=== PATIENT | male | born 1945 | race Caucasian/White ===

== ENCOUNTER 2017-09-30 21:02 | Inpatient (IN) | payer BC, MEDICARE ==
[2017-09-30 21:36] LABS: #Eosinphils 0.1 thou/uL (0.0-0.7); #Lymphocytes 1.4 thou/uL (1.20-3.40); #Monocytes 0.9 thou/uL (0.11-0.59); #Neutrophils 6.6 thou/uL (1.40-6.50); %Basophils 0.5 % (0.0-1.0); %Eosinophils 0.8 % (0.0-10.0); %Lymphocytes 15.8 % (21.0-51.0); %Neutrophils 72.9 % (42.0-75.0); Hemoglobin 12.1 g/dL (14.0-18.0); Mean Corpuscular HGB CONC 34.1 g/dL (32.0-36.0); Mean Corpuscular Hemoglobin 34.1 pg (27.0-31.0); Mean Platelet Volume 6.5 fL (7.4-10.4); Platelet Count 281 thou/uL (130-400); Red Blood Cell (RBC) Count 3.56 mill/uL (4.70-6.10); White Blood Cell (WBC) Count 9.1 thou/uL (4.8-10.8)
[2017-09-30 21:42] LABS: INR-International Normal Ratio 1.1; PTT 32.3 SEC (22.9-36.1); Prothrombin Time 14.3 SEC (12.0-14.7)
--- NOTE | 2017-09-30 21:52 | RAD ---
CHEST ONE VIEW: HISTORY: Enteric tube placement. Preop. COMPARISON: Radiograph from outside facility. FINDINGS: Enteric tube SidePort is at the gastric fundus. The lungs are clear. No pneumothorax or effusion. IMPRESSION: Enteric tube SidePort at the gastric fundus. POS: MARIA ELENA
[2017-09-30 21:55] LABS: ALT (SGPT) 22 U/L (8-55); AST (SGOT) 20 U/L (5-34); Albumin 3.7 g/dL (3.4-4.8); Alkaline Phosphatase 79 U/L (40-150); Anion Gap 9 mmol/L (10-20); BUN (Urea Nitrogen) 34 mg/dL (8.4-25.7); Bilirubin, Total 0.9 mg/dL (0.2-1.2); CK (CPK) 36 U/L (30-200); Calc. Creatinine Clearance 0 mL/min (70-130); Calcium 9.3 mg/dL (7.8-10.44); Carbon Dioxide 31 mmol/L (23-31); Chloride 101 mmol/L (98-107); Estimated GFR-MDRD Greater than 90; Globulin 2.4 g/dL (2.4-3.5); Glucose 116 mg/dL (83-110); Lipase 35 U/L (8-78); Potassium 3.4 mmol/L (3.5-5.1); Protein, Total 6.1 g/dL (5.8-8.1); Sodium 138 mmol/L (136-145)
[2017-09-30 21:58] LABS: CKMB 0.6 ng/mL (0-6.6); Troponin I Less than 0.010 ng/mL (< 0.028)
[2017-10-01] MEDS ORDERED: Ziprasidone 20 MG VIAL IM PRN (01:26)
[2017-10-01] MEDS ORDERED: Dextrose 5% in Water 1,000 ML IV PRN (01:26)
[2017-10-01] MEDS ORDERED: Ondansetron ODT 4 MG TAB PO PRN (01:26)
[2017-10-01] MEDS ORDERED: Ondansetron HCl/PF 4 MG/2 ML Vial IVP PRN ×2 (01:26→01:34)
[2017-10-01] MEDS ORDERED: Acetaminophen 1,000 MG in Premix Bag 1 BAG IVPB PRN (01:26)
[2017-10-01] MEDS ORDERED: Dextrose 50% Abboject 50 ML SYRINGE SLOW IVP PRN (01:26)
[2017-10-01] MEDS ORDERED: hydrALAZINE 20 MG/ML VIAL SLOW IVP PRN ×2 (01:26→18:08)
[2017-10-01] MEDS ORDERED: Morphine 4 MG/ML VIAL SLOW IVP PRN ×4 (01:26→15:30)
[2017-10-01] MEDS ORDERED: Ondansetron ODT 4 MG TAB SL PRN (01:34)
[2017-10-01] MEDS ORDERED: D5 1/2 NS w/20 mEq KCL 1,000 ML IV SCH (01:45)
[2017-10-01] MEDS: Sodium Chloride 0.9% 1,000 ML IV SCH ×3 (02:06→20:28)
[2017-10-01 05:15] VITALS: BMI 27.3
[2017-10-01 05:30] LABS: #Basophils 0.1 thou/uL (0.0-0.2); #Eosinphils 0.1 thou/uL (0.0-0.7); #Lymphocytes 1.5 thou/uL (1.20-3.40); #Monocytes 0.9 thou/uL (0.11-0.59); #Neutrophils 6.3 thou/uL (1.40-6.50); %Basophils 0.6 % (0.0-1.0); %Lymphocytes 16.9 % (21.0-51.0); %Monocytes 10.1 % (0.0-10.0); %Neutrophils 71.4 % (42.0-75.0); Hemoglobin 11.1 g/dL (14.0-18.0); Mean Corpuscular HGB CONC 34.7 g/dL (32.0-36.0); Mean Platelet Volume 6.8 fL (7.4-10.4); Platelet Count 246 thou/uL (130-400); RBC Distribution Width 11.1 % (11.5-14.5); Red Blood Cell (RBC) Count 3.19 mill/uL (4.70-6.10); White Blood Cell (WBC) Count 8.8 thou/uL (4.8-10.8)
[2017-10-01 05:49] LABS: Anion Gap 10 mmol/L (10-20); BUN (Urea Nitrogen) 29 mg/dL (8.4-25.7); Calc. Creatinine Clearance 127 mL/min (70-130); Calcium 8.6 mg/dL (7.8-10.44); Carbon Dioxide 24 mmol/L (23-31); Chloride 108 mmol/L (98-107); Estimated GFR-MDRD Greater than 90; Glucose 96 mg/dL (83-110); Potassium 3.5 mmol/L (3.5-5.1); Sodium 138 mmol/L (136-145)
--- NOTE | 2017-10-01 07:04 | HP ---
CHIEF COMPLAINT: Right groin and abdominal pain. HISTORY OF PRESENT ILLNESS: This is a 71-year-old male who has a history of advanced dementia, but danie wu is ambulatory and interacts with his family on a normal day, complaining of more abdominal discomfo rt today. He was seen in the [facility]. CT scan revealed evidence of incarcerated ri ght inguinal hernia. There is some terminal ileum with some edematous changes in the hernia sac, jareth ble to have that hernia reduced. There was transferred to [place] for higher level of care. Here , he has been hemodynamically stable. In discussion with the , the patient does have dementia. His family is his caregivers and he is at home. He takes Geodon daily and has no significant agitati on. He is still ambulatory. he had a right inguinal hernia for a while, but given his other i ssalen did not have it repaired. MEDICAL HISTORY: Includes dementia and hypertension. SURGICAL HISTORY: None. ALLERGIES: No known drug allergies. SOCIAL HISTORY: Lives at home with his and daughter. Former football player. REVIEW OF SYSTEMS: Negative unless described above. PHYSICAL EXAMINATION: VITAL SIGNS: Blood pressure is 147/87, his pulse is 83, respirations are 12. GENERAL: He does awaken to voice and answers questions, although with some difficulty. HEENT: Sclerae are anicteric. Oropharynx clear. NECK: No lymphadenopathy. CHEST: Clear. HEART: Regular rate and rhythm. ABDOMEN: Soft, it is mildly distended, but really no significant tenderness or guarding. Right ingu inal hernia is reducible. EXTREMITIES: No ischemia or edema to extremities. LABORATORY: White cell count is 9, hemoglobin 12, platelet count is 281,000. Sodium 138, potassium is 3.4, creatinine 0.8, bilirubin, all liver function tests and lipase normal. CT scan was reviewed with showed incarceration of small intestine with some edematous change. ASSESSMENT: Incarcerated/strangulated inguinal hernia, now reduced at bedside. PLAN: Operative repair tomorrow. Risks, benefits discussed with the and daughter at the [facility]. They give consent. We will have medicine see him for medical management as well.
[2017-10-01] MEDS: Pantoprazole 40 MG VIAL IVP SCH (08:40)
[2017-10-01 11:15] LABS: Magnesium 1.7 mg/dL (1.6-2.6); Phosphorus 3.2 mg/dL (2.3-4.7)
[2017-10-01] MEDS ORDERED: Midazolam HCl 2 mg/2 ml Vial ONE (11:25)
[2017-10-01] MEDS ORDERED: Fentanyl 100 MCG/2 ML VIAL ONE (11:25)
[2017-10-01] MEDS ORDERED: CEFAZOLIN/Water 2 GM/20 ML SYRINGE ONE (11:35)
[2017-10-01] MEDS ORDERED: Lidocaine 2% 10 ML INJ ONE (11:36)
[2017-10-01] MEDS ORDERED: Bupivacaine PF 0.5% 30 ML VIAL ONE ×2 (11:36→11:46)
[2017-10-01] MEDS ORDERED: Bupivacaine/Epinephrine 0.25% 30 ML VIAL ONE (11:36)
[2017-10-01] MEDS ORDERED: Dexamethasone 20 MG/5 ML VIAL ONE (14:35)
[2017-10-01] MEDS ORDERED: Succinylcholine Chloride 20 MG/ML 10 ml SYRINGE FS ONE (14:35)
[2017-10-01] MEDS ORDERED: PROPOFOL 200 MG/20 ML VIAL ONE (14:35)
[2017-10-01] MEDS ORDERED: Acetaminophen 650 MG/20.3 ML UDCUP PO PRN (15:24)
--- NOTE | 2017-10-01 18:04 | PDOC.PN ---
- Subjective Encounter Start Date: 10/01/17 Encounter Start Time: 18:03 Patient seen and examined for med mngt. No new complaints. No overnight events - Objective MAR Reviewed: Yes Vital Signs & Weight: Vital Signs (12 hours) Temp Pulse Resp BP Pulse Ox 10/01/17 15:55 52 L 18 121/68 100 10/01/17 07:45 98.0 F 67 18 10/01/17 07:30 98.0 F 67 18 129/68 95 Weight Admit Weight 207 lb Weight 207 lb I&O: 09/30/17 10/01/17 10/02/17 06:59 06:59 06:59 Intake Total 660 Output Total 50 Balance 610 Result Diagrams: 10/01/17 04:43 10/01/17 04:43 EKG Reviewed by me: Yes (SR) Phys Exam - Physical Examination Constitutional: NAD Respiratory: no wheezing, no rhonchi Cardiovascular: RRR, no rub Gastrointestinal: soft, non-tender Musculoskeletal: no edema Neurological: moves all 4 limbs Dx/Plan (1) Hypokalemia Code(s): E87.6 - HYPOKALEMIA Status: Acute (2) HTN (hypertension) Code(s): I10 - ESSENTIAL (PRIMARY) HYPERTENSION Status: Chronic (3) Dementia Code(s): F03.90 - UNSPECIFIED DEMENTIA WITHOUT BEHAVIORAL DISTURBANCE Status: Acute (4) HLD (hyperlipidemia) Code(s): E78.5 - HYPERLIPIDEMIA, UNSPECIFIED Status: Chronic - Plan plan discussed w/ family, incentive spirometry, DVT proph w/SCDs DC Losartan/HCT -: Start Losartan 25 mg daily with holding parameters -: Cont all other home meds including Namenda/Geodon -: Full code. DPAO - family -: Thank you for this consultation. Will follow. Review of Systems - Review of Systems Respiratory: negative: Cough, Dry, Shortness of Breath, Hemoptysis, SOB with Excertion, Pleuritic Pain, Sputum, Wheezing Cardiovascular: negative: chest pain, palpitations, orthopnea, paroxysmal nocturnal dyspnea, edema, light headedness, other - Medications/Allergies Allergies/Adverse Reactions: Allergies Allergy/AdvReac Type Severity Reaction Status Date / Time codeine Allergy Verified 10/01/17 05:00 Medications: Current Medications Acetaminophen (Tylenol Elixir) 650 mg PO Q6H PRN PRN Reason: Headache/Fever>101 or Pain Albuterol/Ipratropium (Duoneb) 3 ml NEB Q4H PRN PRN Reason: Wheezing Dextrose/Water (Dextrose 50%) 25 gm SLOW IVP PRN PRN PRN Reason: Hypoglycemia Glucagon (Glucagon) 1 mg IM PRN PRN PRN Reason: Hypoglycemia HCTZ/Losartan Potassium (Hyzaar 50/12.5) 0.5 tab PO [place]U [facility] Hydralazine HCl (Apresoline) 10 mg SLOW IVP Q4H PRN PRN Reason: SBP > 170 or DBP > 100 Dextrose/Water (D5w) 1,000 mls @ 0 mls/hr IV .Q0M PRN; As Directed PRN Reason: Hypoglycemia Sodium Chloride (Normal Saline 0.9%) 1,000 mls @ 110 mls/hr IV .Q9H6M [facility] Last Admin: 10/01/17 14:52 Dose: Not Given Acetaminophen 1,000 mg/ Device 100 mls @ 400 mls/hr IVPB Q6H PRN PRN Reason: Fever/Mild Pain Stop: 10/02/17 01:27 Memantine (Namenda) 10 mg PO BID [facility] Morphine Sulfate (Morphine) 2 mg SLOW IVP Q2H PRN PRN Reason: Mild Pain (1-3) Morphine Sulfate (Morphine) 4 mg SLOW IVP Q2H PRN PRN Reason: Moderate Pain (4-6) Morphine Sulfate (Morphine) 4 mg SLOW IVP Q4H PRN PRN Reason: Moderate to Severe Pain (6-10) Ondansetron HCl (Zofran Odt) 4 mg PO Q6H PRN PRN Reason: Nausea/Vomiting Ondansetron HCl (Zofran) 4 mg IVP Q6H PRN PRN Reason: Nausea Pantoprazole Sodium (Protonix) 40 mg IVP DAILY [facility] Last Admin: 10/01/17 08:40 Dose: 40 mg Rivastigmine (Exelon Patch) 9.5 mg TOP QAM [facility] Sodium Chloride (Flush - Normal Saline) 10 ml IVF PRN PRN PRN Reason: Saline Flush Tramadol HCl (Ultram) 50 mg PO Q4H PRN PRN Reason: Pain Ziprasidone (Geodon) 10 mg IM Q2H PRN PRN Reason: Agitation Ziprasidone (Geodon) 40 mg PO QAM JENIFER Ziprasidone (Geodon) 60 mg PO HS JENIFER
[2017-10-01] MEDS: Ziprasidone 20 MG CAP PO SCH (20:28)
--- NOTE | 2017-10-01 20:36 | OP ---
DATE OF PROCEDURE: 10/01/2017 PREOPERATIVE DIAGNOSIS: Incarcerated right inguinal hernia. POSTOPERATIVE DIAGNOSIS: Incarcerated right inguinal hernia. PROCEDURE: Incarcerated right inguinal hernia repair with mesh, PHS extended. SURGEON: Angel Moctezuma M.D. ANESTHESIA: General. ESTIMATED BLOOD LOSS: Minimal. COMPLICATIONS: None. SPECIMEN: None. TECHNIQUE: The patient was taken to the operating room and placed supine on the table. After genera l anesthetic was obtained, the right groin and abdomen shaved, and draped in a sterile fashion. Obli que incision made above the pubic tubercle in the right lower quadrant. Cautery dissected down throu gh Latrice's to expose the external oblique. External oblique fibers opened along the course of the e xternal ring. Contents of inguinal canal were resected from backside the external oblique. Ilioingu inal nerve was found and segmentally high removed to prevent postoperative pain. Cord structures wer e mobilized on the pubic tubercle using a Julia drain. Dissection superior medially on the cord sh owed there to be a large indirect hernia sac. This was dissected away from other cord structures and a high ligation was performed using a silk suture. The preperitoneal space was entered at the base of this stump as it was inverted back into the preperitoneal space. Preperitoneal space was bluntly dissected using wet unraveled Ray-Parul. PHS extended mesh brought into the sterile field. The underl ay was placed in the preperitoneal space, its fibers laid out flat against the posterior abdominal wa ll. The mesh is cut laterally to incorporate the internal ring. The mesh is sewn distally to the pu bic laterally to shelving edging of ligament, medial to the transverse arch using permanent braided s uture. The two ends of cut mesh were reapproximated at the shelving edging of ligament to reform the internal ring. The extra mesh is tucked back under the external oblique proximally. The wound is i rrigated. Local anesthetic is applied. Tunneled catheter for postop pain control, threaded from abo ve the incision left on top of the mesh. External oblique is closed using 3-0 Vicryl. Latrice's clos ed using 3-0 Vicryl. Skin is closed using running 4-0 Monocryl and Dermabond. The patient was en ro [place] to recovery in stable condition. All instrument counts, needle counts, lap counts are correct.
[2017-10-02] MEDS: Sodium Chloride 0.9% 1,000 ML IV SCH (06:25)
[2017-10-02] MEDS ORDERED: Sodium Chloride 0.9% 1,000 ML IV SCH (07:37)
[2017-10-02] MEDS: Losartan 25 MG TAB PO SCH (08:40)
[2017-10-02] MEDS: Pantoprazole 40 MG VIAL IVP SCH (08:41)
[2017-10-02] MEDS: Rivastigmine 9.5mg/24 Hour PATCH TOP SCH (08:41)
[2017-10-02] MEDS: Ziprasidone 20 MG CAP PO SCH ×2 (08:41→21:21)
[2017-10-02] MEDS: traMADol HCl 50 MG TAB PO PRN ×2 (09:05→15:06)
--- NOTE | 2017-10-02 10:39 | PDOC.GSPN ---
Surgery Progress Note: Subj - Subjective Patient reports: no new complaints (POD 2, doing well. tolertating liquids, no nausea) Surgery Progress Note: Obj - Vital signs Vital signs: Vital Signs - Most Recent Temp Pulse Resp BP Pulse Ox 98.5 F 67 14 126/61 93 L 10/02/17 07:51 10/02/17 07:51 10/02/17 07:51 10/02/17 07:45 10/02/17 07:45 - Physical Exam General: no distress Cardiovascular: regular rate and rhythm Respiratory: clear to auscultation Abdomen: soft, non tender Surgery Progress Note: Results - Labs Result Diagrams: 10/01/17 04:43 10/01/17 04:43 Surgery Progress Note: A/P - Problem (1) Incarcerated inguinal hernia Current Visit: Yes Code(s): K40.30 - UNIL INGUINAL HERNIA, W OBST, W/O GANGR, NOT SPCF RECUR Status: Acute Assessment and Plan: Advance to GI soft diet. Probably home tomorrow
[2017-10-03 07:50] VITALS: BP 143/66; TEMP 98.3
[2017-10-03] MEDS: Ziprasidone 20 MG CAP PO SCH (08:41)
[2017-10-03] MEDS: Pantoprazole 40 MG VIAL IVP SCH (08:41)
[2017-10-03] MEDS: Rivastigmine 9.5mg/24 Hour PATCH TOP SCH (08:41)
[2017-10-03] MEDS: Losartan 25 MG TAB PO SCH (08:42)
--- NOTE | 2017-10-03 18:56 | DIS ---
DATE OF ADMISSION: 09/30/2017 DATE OF DISCHARGE: 10/03/2017 ADMITTING DIAGNOSIS: Incarcerated right inguinal hernia. DISCHARGE DIAGNOSIS: Incarcerated right inguinal hernia, dementia, hypertension. PROCEDURES: Right inguinal hernia repair with mesh. CONDITION AT DISCHARGE: Improved. STAFF: Angel Moctezuma MD HOSPITAL COURSE: See hospital chart for details of hospitalization.
== END 2017-10-03 11:33 | disposition home or self-care (01) | DRG 352 ==
LOC: ERS 21:02 → SURG A 22:26
PROVIDERS: ADMIT Surgery; ATTEND Surgery
PROC: 0YU50JZ Supplement Right Inguinal Region with Synthetic Substitute, Open Approach (ICD-10-PCS; principal; 2017-10-01)
DX: K40.30 Unilateral inguinal hernia, with obstruction, without gangrene, not specified as recurrent (principal); F03.90 Unspecified dementia, unspecified severity, without behavioral disturbance, psychotic disturbance, mood disturbance, and anxiety; I10 Essential (primary) hypertension; E87.6 Hypokalemia; E87.5 Hyperkalemia
CPT/HCPCS: 36415; 71045; 80048; 80053; 82550; 82553; 83690; 83735; 83880; 84100; 84484; 85025; 85610; 85730; 93005; 96360; A4306; C1781; C9113; J1100; J2250; J2704; J3010; S0020

== ENCOUNTER 2018-11-22 17:43 | Inpatient (IN) | payer MEDICARE, BC ==
[2018-11-22 18:36] LABS: #Eosinphils 0.2 thou/uL (0.0-0.7); #Lymphocytes 0.9 thou/uL (1.20-3.40); #Monocytes 1.1 thou/uL (0.11-0.59); #Neutrophils 9.4 thou/uL (1.40-6.50); %Basophils 0.3 % (0.0-1.0); %Eosinophils 1.4 % (0.0-10.0); %Lymphocytes 7.4 % (21.0-51.0); %Monocytes 9.7 % (0.0-10.0); %Neutrophils 81.2 % (42.0-75.0); Hemoglobin 11.7 g/dL (14.0-18.0); Mean Corpuscular HGB CONC 34.4 g/dL (32.0-36.0); Mean Corpuscular Hemoglobin 34.9 pg (27.0-31.0); Platelet Count 191 thou/uL (130-400); RBC Distribution Width 11.1 % (11.5-14.5); Red Blood Cell (RBC) Count 3.35 mill/uL (4.70-6.10); White Blood Cell (WBC) Count 11.5 thou/uL (4.8-10.8)
--- NOTE | 2018-11-22 18:49 | RAD ---
Exam: Chest one view HISTORY:Preoperative exam for left hip fracture repair Comparison: 11/22/2018 at 12:38 PM FINDINGS: Cardiac silhouette:Stable cardiomegaly and atherosclerosis Pulmonary vessels: Normal Costophrenic angles: Clear LUNGS: No masses or consolidation. Pneumothorax: None Osseous abnormalities: None IMPRESSION: 1. No acute cardiopulmonary process. 2. Stable atherosclerosis of the aorta.
--- NOTE | 2018-11-22 18:50 | RAD ---
Radiograph pelvis one view: DATE: 11/22/2018 HISTORY: 73-year-old male with left hip pain due to fall FINDINGS: There is fracture of the left femoral neck, with varus angulation, overlap of fracture fragments, and at least mild superior lateral displacement of distal fragments. The pelvic ring appears to be grossly intact on this plain radiograph. IMPRESSION: Acute, traumatic, displaced, left femoral neck fracture.
[2018-11-22 18:57] LABS: ALT (SGPT) 23 U/L (8-55); AST (SGOT) 31 U/L (5-34); Albumin 3.6 g/dL (3.4-4.8); Alkaline Phosphatase 96 U/L (40-150); Anion Gap 9 mmol/L (10-20); BUN (Urea Nitrogen) 16 mg/dL (8.4-25.7); Bilirubin, Total 0.9 mg/dL (0.2-1.2); Calc. Creatinine Clearance 0 mL/min (70-130); Calcium 9.7 mg/dL (7.8-10.44); Carbon Dioxide 29 mmol/L (23-31); Chloride 101 mmol/L (98-107); Estimated GFR-MDRD Greater than 90; Globulin 2.9 g/dL (2.4-3.5); Glucose 109 mg/dL (83-110); Potassium 4.2 mmol/L (3.5-5.1); Protein, Total 6.5 g/dL (5.8-8.1); Sodium 135 mmol/L (136-145)
--- NOTE | 2018-11-22 19:53 | CT ---
Exam: Head CT without contrast HISTORY: Altered mental status. COMPARISON: none FINDINGS: Hemorrhage: No intraparenchymal hemorrhage or extra-axial hematoma. Brain parenchyma: Cortical bingham-white matter differentiation is preserved, with the exception of the right frontal lobe with is evidence of malacia from a remote insult. Overall, age-appropriate brain volume loss.Chronic small vessel ischemic changes of white matter are noted. Ventricular system: Ventricles and sulci are patent and symmetric. Calvarium: Intact. Sinuses and mastoid air cells: Adequate aeration. IMPRESSION: No acute intracranial process.
[2018-11-22] MEDS ORDERED: Morphine 4 MG/ML VIAL SLOW IVP PRN (20:03)
[2018-11-22] MEDS ORDERED: Dextrose 5% in Water 1,000 ML IV PRN (20:03)
[2018-11-22] MEDS ORDERED: Ondansetron PF 4 MG/2 ML Vial IVP PRN (20:03)
[2018-11-22] MEDS ORDERED: Dextrose 50% Abboject 50 ML SYRINGE SLOW IVP PRN (20:03)
[2018-11-22] MEDS ORDERED: Promethazine HCl 25 MG/ML VIAL IM PRN (20:03)
[2018-11-22] MEDS ORDERED: traMADol HCl 50 MG TAB PO PRN (20:08)
[2018-11-22] MEDS ORDERED: Sodium Chloride 0.9% 1,000 ML IV SCH (20:30)
--- NOTE | 2018-11-22 22:18 | HP ---
TRAUMA SURGEON: Dr. Knight. CONSULTING PHYSICIAN: Dr. Underwood. HISTORY OF PRESENT ILLNESS: The patient is a 73-year-old male who presented to the emergency department of [facility] today complaining of persistent left-sided hip pain. The patient had fallen 3 days prior and had gone to the emergency department at that time complaining of the same hip pain. He was imaged at that time and no injury was noted. The patient presented again to the ED complaining of the same hip pain. Subsequently, a CT was completed, which demonstrated a fracture of the left femoral neck. He was transferred here for evaluation by Orthopedic Surgery. At the time my evaluation, the patient's family reported the patient has severe dementia and he has not quite been himself today. They did say that they felt partially the patient was not as alert as usual because he received morphine; but generally since he fell, the patient has not been as communicative or involved as he normally is. REVIEW OF SYSTEMS: All additional 10-point review of systems negative except as indicated above. PAST MEDICAL HISTORY: Hypertension and dementia. PAST SURGICAL HISTORY: Right inguinal hernia repair, cholecystectomy, right ankle surgery. SOCIAL HISTORY: Family reports a remote history of tobacco and alcohol use, but nothing recently. They also deny any history of drug use. MEDICATIONS: Flomax, aspirin, Namenda, spironolactone, losartan, Exelon patch, and vitamin D. ALLERGIES: CODEINE, IT IS MORE OF A SENSITIVITY THAN AN ALLERGY. PHYSICAL EXAMINATION: VITAL SIGNS: Temperature 96, respirations 18, oxygen saturation 96% on room air , blood pressure 125/55, temperature 99.2. PRIMARY SURVEY: Airway intact. Adequate breath sounds bilaterally. 2+ pulses in the bilateral radials, femorals, and DPs. GCS is 14 to 13. Gross motor and sensation intact. No lacerations, bruising, or external bleeding. SECONDARY SURVEY: HEAD: Normocephalic and atraumatic. EYES: Pupils 3-2, equal, round, reactive to light bilaterally. ENT: No hemotympanum. No epistaxis. No septal hematoma. Midface stable to manipulation. No blood in the oropharynx. C-SPINE: No step-offs or deformities or tenderness to the C-spine. CHEST: Nontender. No crepitus or abrasions. ABDOMEN: Soft, nontender, nondistended. PELVIS: Stable to palpation left-sided hip pain. RECTAL: Deferred. GENITOURINARY: Deferred. EXTREMITIES: No gross deformity. No abrasions or ecchymosis. 2+ pulses in bilateral radials, femorals, and DPs. BACK/SPINE: No step-offs or deformities or tenderness to palpation of the thoracic or lumbar spine. No abrasions or ecchymosis noted. NEUROLOGIC: 5/5 strength in the bilateral lands resource manager, plantar flexion, and dorsiflexion. Gross normal sensation x4 extremities. LABORATORY FINDINGS: White count 11.5, hemoglobin 11.7, hematocrit 33.9, platelets 191. Sodium 135, potassium 4.2, chloride 101, carbon dioxide 29, BUN 16, creatinine 0.71, glucose 109. DIAGNOSTIC FINDINGS: Chest x-ray demonstrates no acute cardiopulmonary process. Stable atherosclerosis of the aorta. Pelvic x-ray demonstrates acute traumatic displaced left femoral neck fracture. CT of the brain demonstrates no acute intracranial process. ASSESSMENT: 1. Status post mechanical fall 3 days ago. 2. Left femoral neck fracture. 3. Hyponatremia. 4. Failure to thrive. PLAN: The patient will be admitted to the surgical floor. Dr. Underwood, Orthopedic Surgery has been consulted and plans to take the patient to the OR tomorrow. We will send the UA today. CT of the brain was negative. However, the patient has a history of frequent UTIs and has a slight decrease in his mentation from baseline. The encephalopathy could also be due to pain and recent trauma as well. Family members and foreclosure specialist at bedside, did not seem to be alarmed the patient's mentation. Postoperatively, the patient will work with Physical and Occupational Therapy and will likely need placement at either rehab facility or long term facility. The patient was discussed with Dr. Knight before this dictation. Job ID: [id number] [facility]
[2018-11-22] MEDS: Famotidine 20 MG TAB PO SCH (22:59)
[2018-11-22] MEDS: Senokot S 8.6-50 MG TAB PO SCH (22:59)
[2018-11-22] MEDS: Acetaminophen 1,000 MG in Premix Bag 1 BAG IVPB SCH (23:00)
[2018-11-23 01:26] VITALS: BMI 26.5
[2018-11-23 03:01] LABS: Bilirubin Negative (Negative); Blood, Urine Negative (Negative); Clarity Clear (Clear); Glucose, Urine (Dipstick) Normal (Negative); Leukocyte 500 Leu/uL (Negative); Nitrite Negative (Negative); Protein, Urine (Dipstick) 10 mg/dL (Neg-Trace); Squamous Epithelial 0-3 HPF (0-3); Urobilinogen Normal mg/dL (Less than 2); WBC/HPF Greater than 50 HPF (0-3); Yeast-Budding 1+ HPF (None Seen)
[2018-11-23 03:04] LABS: Urine Culture Reflex Yes Yes
[2018-11-23 05:13] LABS: #Eosinphils 0.3 thou/uL (0.0-0.7); #Lymphocytes 1.3 thou/uL (1.20-3.40); #Monocytes 0.8 thou/uL (0.11-0.59); #Neutrophils 3.8 thou/uL (1.40-6.50); %Basophils 0.7 % (0.0-1.0); %Eosinophils 4.3 % (0.0-10.0); %Lymphocytes 21.5 % (21.0-51.0); %Monocytes 12.5 % (0.0-10.0); Hemoglobin 11.2 g/dL (14.0-18.0); Mean Corpuscular HGB CONC 34.1 g/dL (32.0-36.0); Mean Corpuscular Hemoglobin 34.6 pg (27.0-31.0); Mean Platelet Volume 7.3 fL (7.4-10.4); Platelet Count 179 thou/uL (130-400); Red Blood Cell (RBC) Count 3.24 mill/uL (4.70-6.10); White Blood Cell (WBC) Count 6.2 thou/uL (4.8-10.8)
[2018-11-23 05:28] LABS: Anion Gap 8 mmol/L (10-20); BUN (Urea Nitrogen) 16 mg/dL (8.4-25.7); Calc. Creatinine Clearance 116 mL/min (70-130); Calcium 9.5 mg/dL (7.8-10.44); Carbon Dioxide 30 mmol/L (23-31); Chloride 104 mmol/L (98-107); Estimated GFR-MDRD Greater than 90; Glucose 97 mg/dL (83-110); Magnesium 1.9 mg/dL (1.6-2.6); Phosphorus 3.8 mg/dL (2.3-4.7); Sodium 138 mmol/L (136-145)
[2018-11-23] MEDS: Acetaminophen 1,000 MG in Premix Bag 1 BAG IVPB SCH ×2 (06:48→12:27)
[2018-11-23] MEDS ORDERED: Fentanyl 100 MCG/2 ML VIAL ONE ×2 (07:05→07:50)
[2018-11-23] MEDS ORDERED: CEFAZOLIN 2 GM in Premix Bag 1 BAG IVPB SCH (07:30)
[2018-11-23] MEDS ORDERED: Vancomycin HCl 1.5 GM in Sodium Chloride 0.9% 250 ML 300 ML IVPB SCH (07:30)
[2018-11-23] MEDS ORDERED: Tranexamic Acid 1,000 MG/10 ML VIAL ONE (07:41)
[2018-11-23] MEDS ORDERED: Sodium Chloride 0.9% 100 ML ONE (07:41)
[2018-11-23] MEDS ORDERED: Ondansetron HCl/PF 4 MG/2 ML Vial IVP PRN ×2 (07:50→10:23)
--- NOTE | 2018-11-23 08:01 | CON ---
DATE OF CONSULTATION: HISTORY OF PRESENT ILLNESS: Mr. Mtz is a 73-year-old man, who is demented, but lives with his and a caregiver in [place]. He was bending over to pet his dog last night, fell and suffered a fracture of his femoral neck. This probably happened several days earlier, but then displaced yesterday. PAST MEDICAL HISTORY: Positive for hypertension and dementia. ALLERGIES: CODEINE. SOCIAL HISTORY: He does not smoke or drink at this time. He does have excellent family support. PHYSICAL EXAMINATION: GENERAL: Exam shows a pleasant gentleman, who is in no distress. . HEENT: Normocephalic, atraumatic. LUNGS: Clear. HEART: Regular. MUSCULOSKELETAL: Left hip is shortened, externally rotated. Pain with any manipulation of the hip. No palpable pulses. IMAGING STUDIES: Radiograph shows displaced femoral neck fracture. ASSESSMENT AND PLAN: Plan is for hemiarthroplasty of hip. understands risks of infection, stiffness, damage, blood clots, transfusion, . They elected to proceed with surgery. Job ID: [id number]
[2018-11-23] MEDS ORDERED: Losartan 25 MG TAB PO SCH (09:00)
[2018-11-23] MEDS ORDERED: Prevnar 13-Val Conj/PF 0.5 ML SYRINGE IM ONE ×2 (09:00→15:15)
[2018-11-23] MEDS ORDERED: Aspirin 81 mg Enteric Coated Tablet PO SCH (09:00)
[2018-11-23] MEDS ORDERED: Promethazine HCl 25 MG/ML VIAL IM PRN (10:23)
[2018-11-23] MEDS ORDERED: Promethazine HCl 25 MG/ML VIAL SLOW IVP PRN (10:23)
--- NOTE | 2018-11-23 10:26 | OP ---
DATE OF PROCEDURE: 11/23/2018 PREOPERATIVE DIAGNOSIS: Left hip femoral neck fracture. POSTOPERATIVE DIAGNOSIS: Left hip femoral neck fracture. OPERATIVE PROCEDURE: Press-fit left hip monopolar hemiarthroplasty. SURGEON: Dioni Underwood MD DITTO MACHINE OPERATOR: Abner Luo PA-C. ANESTHESIA: General via endotracheal tube. COMPONENTS USED: [facility] [employer] Accolade II press-fit size 9 hip stem with a 53 mm outer diameter Unitrax endoprosthesis with a -4 neck length. FINDINGS: Femoral neck fracture as described on radiograph and hemarthrosis. ESTIMATED BLOOD LOSS: 150. DRAINS: None. SPECIMENS: None. COMPLICATIONS: None. COUNTS: Correct. INDICATION FOR SURGERY: Arnulfo is a 73-year-old white male, who fell yesterday resulting in a femoral neck fracture. He was admitted to the Trauma Service and we were consulted for definitive orthopedic management of this problem. PROCEDURE IN DETAIL: After informed consent was obtained in the preoperative holding area, the patient received preoperative antibiotics, was taken to the operative suite, and positioned appropriately on the operating table in the lateral decubitus position. The hip was then prepped and draped in usual sterile fashion. Prior to incision, a time-out was called and all members of the surgical team agreed upon site, surgeon, and patient. Once this was completed, an incision was made using a lateral approach 2 fingerbreadths above the tip of the trochanter and 2 fingerbreadths below the flare by palpation. The subcutaneous layer was opened with Bovie electrocautery and the IT band was encountered. This was identified and a gutierrez elevator was used to remove the adipose tissue from it. Once it was cleaned, Bovie and scissors were used to incise the IT band, exposing the lateral aspect of the trochanter and the abductor muscles. The abductor muscles were then reflected using Bovie electrocautery. The gluteus medius was also then reflected anteriorly and Charnley retractor was placed to hold this open. An anterior capsulotomy was performed, identifying the fracture hematoma at that time. Once the capsulotomy was completed, the neck cut was then made using the oscillating saw. Once the napkin ring of bone was removed using rondwayne Lemandieell, the femoral head was then removed using a corkscrew combination with Hohmann retractors. The appropriate size was then chosen and this was trialed and attention was then turned to femoral preparation. The cookie cutter was used, followed by intramedullary reamers and sequential broaching up to the appropriate size of press-fit stem. Once this was completed, we had good calcar fit and 1 fingerbreadth above the top of the lesser trochanter. We then malleted in the appropriate sized femoral prosthesis using a good strong press fit. Happy with our fit, we went ahead and trialed up to the appropriate neck length using shuck, internal and external rotation, and other maneuvers to identify good solid hip fit and finish, and without any dislocation at greater than 50-60 degrees of internal rotation with the hip flexed to 90 degrees. Shuck was negative as well. We then selected the appropriate neck length and endoprosthesis malleted firmly into the Murphy taper. A reduction maneuver was then performed and we copiously irrigated the entire wound with normal saline. Again, we ran the hip through hip internal and external rotation flexed at 90 degrees and shuck being negative. After copious irrigation of 3 L of normal saline, the abductors were then reapproximated and stitched down using #2 Vicryl. The IT band was approximated with #2 Vicryl and closed with a running #2 Quill polypropylene stitch. Subcutaneous layer was closed with a running 0 Quill stitch and skin closure was accomplished with 3-0 Monocryl Quill stitch and Dermabond skin cement. All counts were correct. A sterile dressing was applied and the procedure was terminated without any complications. The airway was removed in the operative suite and the patient was taken to recovery room in stable condition. Dictated by Abner Luo PA-C, for Dioni Underwood MD. Job ID: [id number]
--- NOTE | 2018-11-23 10:38 | RAD ---
XR Hip Lt 2-3 View History: Postoperative Comparison: Radiograph prior day Findings: Satisfactory appearance left hip arthroplasty. Expected postoperative gas and edema. Impression: Satisfactory postoperative appearance.
[2018-11-23] MEDS ORDERED: Cepastat Lozenges 1 LOZ PO PRN (11:18)
[2018-11-23] MEDS ORDERED: Ondansetron PF 4 MG/2 ML Vial IVP PRN (11:18)
[2018-11-23] MEDS ORDERED: Ondansetron ODT 4 MG TAB PO PRN (11:18)
[2018-11-23] MEDS ORDERED: Bisacodyl 10 MG SUPP PR PRN (11:18)
[2018-11-23] MEDS ORDERED: Milk Of Magnesia 30 ML UDCUP PO PRN (11:18)
[2018-11-23] MEDS ORDERED: Fleet Enema 133 ML BOT PR PRN (11:18)
[2018-11-23] MEDS: Polyethylene Glycol 3350 17 GM Packet PO SCH (12:36)
[2018-11-23] MEDS: Spironolactone 25 MG TAB PO SCH (12:37)
[2018-11-23] MEDS: Senokot S 8.6-50 MG TAB PO SCH ×2 (12:38→21:33)
[2018-11-23] MEDS: Famotidine 20 MG TAB PO SCH ×2 (12:38→21:28)
[2018-11-23] MEDS: Cipro 250 MG TAB PO SCH ×2 (12:39→21:27)
[2018-11-23] MEDS: Tamsulosin HCl 0.4 MG CAP PO SCH (12:40)
[2018-11-23] MEDS ORDERED: Rocuronium Bromide 10 MG/ML (10ML VIAL) ONE (13:17)
[2018-11-23] MEDS ORDERED: Ondansetron PF 4 MG/2 ML Vial ONE (13:17)
[2018-11-23] MEDS ORDERED: Glycopyrrolate 0.2 MG/ML 5 ML SYRINGE ONE (13:17)
[2018-11-23] MEDS ORDERED: PROPOFOL 200 MG/20 ML VIAL ONE (13:17)
[2018-11-23] MEDS ORDERED: Lidocaine 1% PF 5 ML VIAL ONE (13:17)
[2018-11-23] MEDS: Rivastigmine 9.5mg/24 Hour PATCH TOP SCH (15:06)
[2018-11-23] MEDS: CEFAZOLIN 2 GM in Premix Bag 1 BAG IVPB SCH ×2 (15:06→22:38)
[2018-11-23] MEDS: traMADol HCl 50 MG TAB PO PRN (16:48)
[2018-11-23] MEDS: Acetaminophen 500 MG TAB PO SCH (18:07)
--- NOTE | 2018-11-23 20:59 | PRG ---
DATE OF SERVICE: 11/23/2018 SUBJECTIVE: The patient was seen this afternoon postop, sitting up in bed with family and personal care sitter at bedside. The patient is more alert than yesterday, but still not verbalizing. He is following commands however. His personal care sitter was about to feed him lunch and he did not appear to be in any pain. OBJECTIVE: VITAL SIGNS: Temperature 98.9, pulse 61, respirations 20, oxygen saturation 96% on room air, blood pressure 124/67. GENERAL: Well-appearing elderly male, sitting up in bed with no signs of acute distress. PULMONARY: Equal chest rise and fall. Clear breath sounds bilaterally. No signs of acute respiratory distress. CARDIAC: Regular rate and rhythm. No murmurs, gallops, or rubs. GI: Abdomen is soft, nontender, nondistended. EXTREMITIES: 2+ pulses in all extremities. No significant swelling noted. Gross motor and sensation intact. DIAGNOSTIC FINDINGS: There are no new diagnostic findings to report. LABORATORY FINDINGS: White count 6.2, hemoglobin 11.2, hematocrit 32.9, platelets 179. Sodium 138, potassium 4.0, chloride 104, carbon dioxide 30, BUN 16, creatinine 0.75, glucose 96, phos 3.8, magnesium 1.9. UA is positive with leuk esterase, white cells, yeast. ASSESSMENT: 1. Status post mechanical fall. 2. Left femoral neck fracture. 3. Urinary tract infection. 4. History of dementia and hypertension. PLAN: Postoperatively, the patient received pain control. The patient was also started on Cipro for 5 days. Wong will be removed tomorrow. He will have a regular diet. Discontinue IV fluids. Follow up cultures. Cipro x5 days for uncomplicated UTI. The patient worked with Physical and Occupational Therapy. Did discuss briefly with the patient's personal development executive about sending the patient to rehab or correction for further physical therapy. Senior Qa Tester reported family will likely want to take the patient home and have home physical therapy. We will rediscuss it tomorrow after the patient has had time to work with the physical therapist. Job ID: [id number]
[2018-11-23] MEDS ORDERED: Senokot S 8.6-50 MG TAB PO SCH (21:00)
[2018-11-23] MEDS: Ferrous Gluconate 324 MG TAB PO SCH (21:28)
[2018-11-23] MEDS: Fluconazole 100 MG TAB PO SCH (21:46)
[2018-11-24] MEDS: Acetaminophen 500 MG TAB PO SCH ×5 (03:44→23:44)
[2018-11-24] MEDS: traMADol HCl 50 MG TAB PO PRN ×2 (04:01→11:56)
[2018-11-24 04:40] LABS: #Eosinphils 0.1 thou/uL (0.0-0.7); #Lymphocytes 0.8 thou/uL (1.20-3.40); #Monocytes 1.1 thou/uL (0.11-0.59); #Neutrophils 6.8 thou/uL (1.40-6.50); %Basophils 0.3 % (0.0-1.0); %Eosinophils 1.4 % (0.0-10.0); %Lymphocytes 8.5 % (21.0-51.0); %Neutrophils 77.8 % (42.0-75.0); Hemoglobin 10.7 g/dL (14.0-18.0); Mean Corpuscular HGB CONC 34.3 g/dL (32.0-36.0); Mean Corpuscular Hemoglobin 34.7 pg (27.0-31.0); Mean Platelet Volume 7.4 fL (7.4-10.4); Platelet Count 190 thou/uL (130-400); RBC Distribution Width 10.8 % (11.5-14.5); White Blood Cell (WBC) Count 8.8 thou/uL (4.8-10.8)
[2018-11-24 05:09] LABS: Anion Gap 10 mmol/L (10-20); BUN (Urea Nitrogen) 25 mg/dL (8.4-25.7); Calc. Creatinine Clearance 103 mL/min (70-130); Calcium 8.5 mg/dL (7.8-10.44); Carbon Dioxide 26 mmol/L (23-31); Chloride 102 mmol/L (98-107); Estimated GFR-MDRD 89; Glucose 110 mg/dL (83-110); Magnesium 1.7 mg/dL (1.6-2.6); Phosphorus 2.8 mg/dL (2.3-4.7); Sodium 134 mmol/L (136-145)
[2018-11-24] MEDS ORDERED: Magnesium 2 GM/50 ML 2 GM in Premix Bag 1 BAG IVPB SCH (07:30)
[2018-11-24] MEDS ORDERED: Sodium Phosphate 15 MMOL in Sodium Chloride 0.9% 250 ML 250 ML IVPB SCH (07:30)
--- NOTE | 2018-11-24 08:07 | PRG ---
DATE OF SERVICE: 11/24/2018 SUBJECTIVE: Arnulfo is a 73-year-old male, who is postop day 1 from a left hip press-fit hemiarthroplasty secondary to femoral neck fracture. He slept well last night. Family who accompanies him tells me that he does quite a walking independently, but does require 24-hour care due to his dementia and dyskinesia. OBJECTIVE: GENERAL: The patient is asleep. He arouses. VITAL SIGNS: Temperature 99, pulse 86, respiratory rate 16, blood pressure is 125/61. NEUROLOGICAL: He is alert, and arousable. EXTREMITIES: Incision is clean. No malrotation, no shortening, no strikethrough. LABORATORY DATA: Hemoglobin 10.7, hematocrit 31.13. IMPRESSION: 1. A 73-year-old male postop day 1 left hip hemiarthroplasty for femoral neck fracture treatment. 2. Dementia. 3. Anemia. PLAN: Continue current care. Skilled placement. Job ID: [id number]
[2018-11-24] MEDS: Polyethylene Glycol 3350 17 GM Packet PO SCH (08:48)
[2018-11-24] MEDS: Famotidine 20 MG TAB PO SCH ×2 (08:49→20:57)
[2018-11-24] MEDS: Spironolactone 25 MG TAB PO SCH (08:49)
[2018-11-24] MEDS: Tamsulosin HCl 0.4 MG CAP PO SCH (08:49)
[2018-11-24] MEDS: Senokot S 8.6-50 MG TAB PO SCH ×2 (08:49→20:56)
[2018-11-24] MEDS: Ferrous Gluconate 324 MG TAB PO SCH ×2 (08:49→20:57)
[2018-11-24] MEDS: Cipro 250 MG TAB PO SCH ×2 (08:49→20:56)
[2018-11-24] MEDS: Aspirin 81 mg Enteric Coated Tablet PO SCH ×2 (08:49→20:57)
[2018-11-24] MEDS: Rivastigmine 9.5mg/24 Hour PATCH TOP SCH (08:50)
[2018-11-24] MEDS: Multivitamin W/ Minerals 1 TAB PO SCH (09:04)
[2018-11-24] MEDS ORDERED: traMADol HCl 50 MG TAB PO PRN (09:27)
[2018-11-24] MEDS: Fluconazole 100 MG TAB PO SCH (20:56)
[2018-11-25 05:31] LABS: #Eosinphils 0.5 thou/uL (0.0-0.7); #Lymphocytes 1.3 thou/uL (1.20-3.40); #Monocytes 1.1 thou/uL (0.11-0.59); #Neutrophils 5.4 thou/uL (1.40-6.50); %Basophils 0.5 % (0.0-1.0); %Eosinophils 5.7 % (0.0-10.0); %Lymphocytes 15.4 % (21.0-51.0); %Monocytes 13.2 % (0.0-10.0); %Neutrophils 65.1 % (42.0-75.0); Hemoglobin 10.1 g/dL (14.0-18.0); Mean Corpuscular HGB CONC 34.3 g/dL (32.0-36.0); Mean Platelet Volume 6.9 fL (7.4-10.4); Platelet Count 190 thou/uL (130-400); RBC Distribution Width 10.9 % (11.5-14.5); Red Blood Cell (RBC) Count 2.87 mill/uL (4.70-6.10); White Blood Cell (WBC) Count 8.2 thou/uL (4.8-10.8)
[2018-11-25] MEDS: Acetaminophen 500 MG TAB PO SCH ×3 (06:22→18:07)
[2018-11-25] MEDS: Rivastigmine 9.5mg/24 Hour PATCH TOP SCH (10:01)
[2018-11-25] MEDS: Polyethylene Glycol 3350 17 GM Packet PO SCH (10:01)
[2018-11-25] MEDS: Cipro 250 MG TAB PO SCH ×2 (10:02→20:51)
[2018-11-25] MEDS: Aspirin 81 mg Enteric Coated Tablet PO SCH ×2 (10:02→20:51)
[2018-11-25] MEDS: Famotidine 20 MG TAB PO SCH ×2 (10:02→20:51)
[2018-11-25] MEDS: Multivitamin W/ Minerals 1 TAB PO SCH (10:03)
[2018-11-25] MEDS: Ferrous Gluconate 324 MG TAB PO SCH ×2 (10:03→20:51)
[2018-11-25] MEDS: Spironolactone 25 MG TAB PO SCH (10:03)
[2018-11-25] MEDS: Tamsulosin HCl 0.4 MG CAP PO SCH (10:03)
[2018-11-25] MEDS: Senokot S 8.6-50 MG TAB PO SCH ×2 (10:03→20:51)
[2018-11-25] MEDS: traMADol HCl 50 MG TAB PO PRN ×2 (10:14→18:07)
--- NOTE | 2018-11-25 13:56 | PRG ---
DATE OF SERVICE: 11/25/2018 This is Marek Dangelo PA-C dictating a report for French Alvarez DO. SUBJECTIVE: The patient remains on the surgical floor. He is status post a fall which he sustained a left hip fracture and sacral fracture. The patient has undergone operative procedure for his hip fracture, and he tolerated this well. He is awaiting discharge home with home health, home PT per discussion with Dr. Underwood. He would like him to at least work with our therapist today before being discharged home. The family and the treatment team are all in agreement with this. Otherwise, the patient is tolerating a diet. His pain was controlled. His Wong has been discontinued this morning, and we are waiting for him to void. Otherwise, he should be able to be discharged home with the arrangements have been made. OBJECTIVE: VITAL SIGNS: Temperature is 97.6, heart rate 65, blood pressure 146/84, respirations 18, and oxygen saturation is 96% on room air. GENERAL: The patient is resting comfortably in bed, who appears in no distress. HEENT: Unremarkable. LUNGS: Clear to auscultation with good inspiratory and expiratory effort, HEART: Regular rate and rhythm. ABDOMEN: Soft, flat, nontender with active bowel sounds. EXTREMITIES: Neurovascularly intact x4. Postop dressing is clean, dry, and intact. LABORATORY FINDINGS: White blood cell count 8.2, hemoglobin 10.9, hematocrit 29.4, and platelets 190. Sodium 134, potassium 4.0, chloride 102, CO2 of 26, BUN 25, creatinine 0.84, glucose 110, magnesium 1.7, and phosphorus 2.8. ASSESSMENT: 1. Status post ground level fall. 2. Status post open reduction and internal fixation of left femoral neck fracture. 3. Urinary tract infection, under appropriate antibiotic treatment. 4. History of hypertension and dementia. PLAN: Plan will be to continue supportive care, physical and occupational therapy, Cipro for a total of 5 days. The patient was evaluated this morning with Dr. Alvarez. Job ID: [id number]
--- NOTE | 2018-11-25 14:50 | PRG ---
DATE OF SERVICE: 11/25/2018 SUBJECTIVE: Arnulfo is a 73-year-old male who is postop day 2 from a left hip hemiarthroplasty. He is only able to stand at the bedside, but he has been a total home health home care patient. OBJECTIVE: VITAL SIGNS: Temperature 97.6, pulse 65, respiratory rate 18, O2 saturation 96% on room air, blood pressure is 146/84. GENERAL: He is alert, responsive with examiner, and very stoic. EXTREMITIES: Incision is clean and closed without erythema. No malrotation. No shortening. LABORATORY DATA: Hemoglobin and hematocrit of 10.1 and 29.4. IMPRESSION: A 73-year-old male, postop day 2 left hip hemiarthroplasty. PLAN: We would like for therapy to work with the patient the rest of today and maybe tomorrow morning to stand and walk the patient, so that home health can be consulted, and the patient's family was instructed on home care. Job ID: [id number]
[2018-11-25] MEDS: Fluconazole 100 MG TAB PO SCH (20:50)
[2018-11-26] MEDS: traMADol HCl 50 MG TAB PO PRN (00:23)
[2018-11-26] MEDS: Acetaminophen 500 MG TAB PO SCH ×2 (00:23→06:27)
[2018-11-26 09:08] VITALS: BP 119/71; TEMP 98.7
[2018-11-26] MEDS: Tamsulosin HCl 0.4 MG CAP PO SCH (09:23)
[2018-11-26] MEDS: Ferrous Gluconate 324 MG TAB PO SCH (09:23)
[2018-11-26] MEDS: Spironolactone 25 MG TAB PO SCH (09:23)
[2018-11-26] MEDS: Cipro 250 MG TAB PO SCH (09:23)
[2018-11-26] MEDS: Multivitamin W/ Minerals 1 TAB PO SCH (09:23)
[2018-11-26] MEDS: Aspirin 81 mg Enteric Coated Tablet PO SCH (09:24)
[2018-11-26] MEDS: Rivastigmine 9.5mg/24 Hour PATCH TOP SCH (09:24)
[2018-11-26] MEDS: Famotidine 20 MG TAB PO SCH (09:24)
[2018-11-26] MEDS: Senokot S 8.6-50 MG TAB PO SCH (09:24)
[2018-11-26] MEDS: Polyethylene Glycol 3350 17 GM Packet PO SCH (09:24)
--- NOTE | 2018-11-26 16:41 | PQF ---
CLINICAL DOCUMENTATION IMPROVEMENT CLARIFICATION FORM: ICD-10 Updated PLEASE DO AN ADDENDUM TO THE PROGRESS NOTE WITH ANY DOCUMENTATION UPDATES OR ADDITIONS AND CARRY THROUGH TO DC SUMMARY. THANK YOU. DATE: 11/26/2018 ATTN: Dr. Alvarez Please exercise your independent, professional judgment in responding to the clarification form. Clinical indicators are provided on the bottom of this form for your review Please check appropriate box(s): [ x ] Encephalopathy: Type: [ x] Acute [ ] Subacute [ ] Chronic Etiology: [ ] Metabolic [ ] Unspecified [ ] in the setting of underlying dementia [ ] Other diagnosis [ ] Unable to determine In addition, please specify: Present on Admission (POA): [ x ] Yes [ ] No [ ] Unable to determine For continuity of documentation, please document condition throughout progress notes and discharge summary. Thank You. CLINICAL INDICATORS - SIGNS / SYMPTOMS / LABS H&P 11/22: Hyponatremia The pt has a hx of frequent UTIs and has a slight decrease in his mentation from baseline. The encephalopathy could also be due to pain and recent trauma as well. PN 11/23: The pt is more alert than yesterday, but still not verbalizing. He is following commands however. Urinary tract infection RISKS: H&P 11/22: Hx: HTN and dementia. L femoral neck fracture; Hyponatremia; Failure to thrive. Hx of frequent UTIs. TREATMENT: Order 11/22-11/23: NS 1,000 ml IV 50 mls/hr PN 11/23: Cipro x 5 days for uncomplicated UTI. Thank you, Ana Maria (This form is maintained as a part of the permanent medical record) 2015 [employer]. All Rights Reserved Ana Maria Medina RN, BSN [email or web address] Office: [phone] [facility]
--- NOTE | 2018-11-27 11:42 | DIS ---
DATE OF ADMISSION: 11/22/2018 DATE OF DISCHARGE: 11/26/2018 ADMISSION DIAGNOSES: 1. Status post mechanical fall with remote presentation, initial injury three days prior. 2. Left femoral neck fracture. 3. Hyponatremia. 4. Failure to thrive. CONSULTATIONS: Orthopedics, Dioni Underwood MD PROCEDURES PERFORMED: Press-fit left hip monopolar hemiarthroplasty. SUMMARY: The patient is a 73-year-old man, who presented to the emergency department in [place] with a chief complaint of left-sided hip pain. The patient had reportedly fallen three days prior to presenting there to the emergency department. He underwent evaluation and examination, and was noted to have the above injury. He was transferred to our facility to be evaluated by Orthopedics, which after evaluation, they were able to proceed with the above procedure which he tolerated well. The patient then began working with Physical and Occupational Therapy. As the patient's family request, he was discharged back home as they already have full-time nursing care and physical and occupational therapy. This was agreed upon by Dr. Underwood and the trauma team, and he will be discharged home with them. He will follow up with Dr. Underwood in 2 to 3 weeks, sooner as needed. He may follow up with Trauma Clinic as needed. He is also recommended that he follow up with his primary care provider in 7 to 10 days. Job ID: [id number]
[2018-11-30] MEDS ORDERED: Ergocalciferol 1.25 MG(50,000 UNITS) CAP PO SCH (09:00)
== END 2018-11-26 11:19 | disposition home or self-care (01) | DRG 470 ==
LOC: ERS 17:43 → SURG B 20:03
PROVIDERS: ADMIT Specialist; ATTEND Specialist
PROC: 0SRB02A Replacement of Left Hip Joint with Metal on Polyethylene Synthetic Substitute, Uncemented, Open Approach (ICD-10-PCS; principal; 2018-11-23)
DX: S72.022A Displaced fracture of epiphysis (separation) (upper) of left femur, initial encounter for closed fracture (principal); E87.1 Hypo-osmolality and hyponatremia; N39.0 Urinary tract infection, site not specified; G93.40 Encephalopathy, unspecified; F03.90 Unspecified dementia, unspecified severity, without behavioral disturbance, psychotic disturbance, mood disturbance, and anxiety; I10 Essential (primary) hypertension; W18.30XA Fall on same level, unspecified, initial encounter; D64.9 Anemia, unspecified; Z79.82 Long term (current) use of aspirin; Z90.49 Acquired absence of other specified parts of digestive tract; Z88.5 Allergy status to narcotic agent; Z79.899 Other long term (current) drug therapy
CPT/HCPCS: 36415; 70450; 71045; 72170; 80048; 80053; 81001; 83735; 84100; 85025; 87077; 87086; 87186; 90471; 90670; G0009; G0390; J0131; J0690; J2001; J2405; J2704; J3010; J3370; J3475; J3490; J7050

== ENCOUNTER 2019-03-24 13:51 | Outpatient (CLI) | payer MEDICARE, BC ==
[2019-03-24 15:54] LABS: Anion Gap 12 mmol/L (10-20); BUN (Urea Nitrogen) 24 mg/dL (8.4-25.7); Calc. Creatinine Clearance 0 mL/min (70-130); Calcium 9.6 mg/dL (7.8-10.44); Carbon Dioxide 31 mmol/L (23-31); Chloride 101 mmol/L (98-107); Estimated GFR-MDRD 73; Glucose 91 mg/dL (83-110); Sodium 140 mmol/L (136-145)
== END 2019-03-24 13:52 | disposition home or self-care (01) ==
LOC: LABBT 13:51
PROVIDERS: ATTEND Dentist Oral and Maxillofacial Surgery
DX: Z01.812 Encounter for preprocedural laboratory examination (principal)
CPT/HCPCS: 80048

== ENCOUNTER → 2019-03-25 | Day surgery (SDC) | payer MEDICARE, BC, OTHER ==
[2019-03-24 14:19] VITALS: BMI 28.8
--- NOTE | 2019-03-26 07:13 | EKG ---
Test Reason : PREOP Blood Pressure : / mmHG Vent. Rate : 076 BPM Atrial Rate : 241 BPM P-R Int : 000 ms QRS Dur : 100 ms QT Int : 404 ms P-R-T Axes : 000 048 060 degrees QTc Int : 454 ms Atrial fibrillation Abnormal ECG When compared with ECG of 30-SEP-2017 21:42, Atrial fibrillation has replaced Sinus rhythm Confirmed by DR. Tri STANLEY (3) on 03/26/2019 7:12:32 AM Referred By: STEPHANIE Confirmed By:DR. Tri STANLEY
== END ==
LOC: SDC 11:25
PROVIDERS: ATTEND Dentist Oral and Maxillofacial Surgery
DX: K02.9 Dental caries, unspecified (principal); Z53.29 Procedure and treatment not carried out because of patient's decision for other reasons
CPT/HCPCS: 93005; 93010